=== PATIENT | female | born 1980 | race Caucasian/White ===

== ENCOUNTER 2018-09-01 11:57 | Inpatient (IN) | payer MEDICAID, OTHER ==
[~2018-09-01 11:57] MED LIST: ACETAMINOPHEN 1,000 MG/100 ML INJ IV ONE; CLINDAMYCIN PHOSPHATE 900 MG/6 ML VIAL ONE; DESFLURANE 240 ML LIQUID IH ONE; DEXAMETHASONE SOD PHOS 4 MG/ML VIAL ONE; FAMOTIDINE 20 MG/2 ML VIAL ONE; FENTANYL CITRATE/PF 250 MCG/5 ML INJ. ONE; LABETALOL HCL 20 MG/4 ML SYRINGE IV ONE; LACTATED RINGERS 1,000 ML IV.SOLN IV ONE; LIDOCAINE HCL 2% PF 100MG/5ML VIAL IJ ONE; MIDAZOLAM HCL 2 MG/2 ML VIAL ONE; ONDANSETRON HCL/PF 4 MG/ 2ML VIAL ONE; PROMETHAZINE HCL 25 MG/ML VIAL ONE; PROPOFOL 200 MG/20 ML VIAL IV ONE; ROCURONIUM BROMIDE 10 MG/ML 5ML VIAL ONE; SCOPOLAMINE HYDROBROMIDE 1.5MG/72HR PATCH TD ONE; SUCCINYLCHOLINE CHLORIDE 200 MG/10 ML VIAL ONE; SUGAMMADEX SODIUM 200 MG/2 ML VIAL IV ONE
[2018-09-01] MEDS ORDERED: ENOXAPARIN SODIUM 40 MG/0.4 ML DISP.SYRIN SQ ONE (12:29)
[2018-09-01] MEDS ORDERED: LACTATED RINGERS 1,000 ML IV ONE (12:29)
[2018-09-01] MEDS ORDERED: SCOPOLAMINE HYDROBROMIDE 1.5MG/72HR PATCH TD ONE (12:29)
[2018-09-01] MEDS ORDERED: FAMOTIDINE 20 MG/2 ML VIAL ONE (12:29)
[2018-09-01] MEDS ORDERED: HYDROmorphone HCL/PF 2 MG/ML VIAL ONE (16:31)
[2018-09-01] MEDS ORDERED: PROMETHAZINE HCL 25 MG/ML VIAL ONE (16:33)
[2018-09-01] MEDS ORDERED: LEVALBUTEROL HCL 1.25 MG/3 ML AMPUL.NEB NEB PRN (17:30)
[2018-09-01] MEDS ORDERED: HYDROcodone /APAP 10/325 1 EACH TABLET PO PRN (17:30)
[2018-09-01] MEDS ORDERED: ACETAMINOPHEN 1,000 MG/100 ML INJ IV PRN (17:30)
[2018-09-01] MEDS ORDERED: MORPHINE SULFATE 10 MG/ML VIAL IVP PRN (17:30)
[2018-09-01] MEDS ORDERED: KETOROLAC TROMETHAMINE 30 MG/1ML VIAL IVP PRN (17:30)
[2018-09-01] MEDS ORDERED: PROMETHAZINE HCL 25 MG in 0.9 % SODIUM CHLORIDE 50 ML IV PRN (17:30)
--- NOTE | 2018-09-01 17:44 | History and Physical Report ---
History of Present Illnes - History of Present Illness Reason for Visit: S/P Gastric Sleeve History of Present Illness: Patient is a 38-year-old white female who has tried multiple diets and exercise programs with no success. She has researched surgical weight loss by talking to friends and family who have had this procedure done. Patient and surgeon decided to proceed with gastric sleeve procedure. Procedure went well without complications- patient is awake and alert on admission and no acute distress (she is doing very well) patient will be admitted and monitored s/p surgical intervention. 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 denies: Inflam bowel disease Heme/Onc: denies: Anemia NOS, Iron deficiency anemia Hepatobiliary: Other (fatty liver disease) Psych: Depression Musculoskeletal: denies: Chronic low back pain Rheumatologic: denies: Fibromyalgia Infectious Disease: Herpes zoster. denies: HIV ENT: denies: Sinusitis Renal/: denies: Acute renal failure Endocrine: obesity. denies: Diabetes, Hypothyroidism Dermatology: denies: Eczema Grav: 4 Para: 3 Ab: 1 - Past Surgical History Past Surgical History: Cholecystectomy, Hysterectomy, Tubal Ligation - Past Family History Mother Family History: Cancer Sister 1 Family History: Cancer - Past Social History Smoke: No Alcohol: Rare Drugs: None Lives: With Family Domestic Violence: Negative - Health Maintenance Health Maintenance: Mammogram Influenza Vaccine: No, Patient Refused Pneumonia Vaccine: No Resuscitation Status: Resusciation Status Resuscitation Status Full Code - Unable to Obtain History Unable to Obtain: No Review of Systems - Review of Systems Constitutional: negative: Fever, Chills Eyes: negative: pain, vision change ENT: negative: Ear Pain, Nose Pain, Throat Pain Respiratory: negative: Cough, Shortness of Breath Cardiovascular: negative: Chest Pain Gastrointestinal: Nausea, Abdominal Pain (s/p gastric sleeve). negative: Vomiting Genitourinary: negative: Dysuria Musculoskeletal: negative: Shoulder Pain, Back Pain Skin: negative: Rash Neurological: negative: Incoordination, Confusion - Medications/Allergies Allergies/Adverse Reactions: Allergies Allergy/AdvReac Type Severity Reaction Status Date / Time amoxicillin Allergy Verified 09/01/18 17:26 latex Allergy Verified 09/01/18 17:26 Penicillins Allergy Verified 09/01/18 17:39 Exam - Exam General: Alert, Oriented to Person, Oriented to Place, Oriented to Time, Cooperative, No acute distress HEENT: Atraumatic, PERRLA, Mouth Mucous membr. moist/[place], Nose Mucous membr. moist/[place] Neck: Normal Range of Motion. No: Stridor Lungs: Clear to auscultation, Normal air movement, Speaks full Sentences. No: Wheezes, Rales Cardiovascular: Regular rate, Normal S1, Normal S2 Peripheral Edema: none Peripheral Pulses: 2+ Abdomen: Soft, Decreased Bowel Sounds. No: Distended, Rigid Integumentary: Normal, [place], Warm, Dry Extremities: No edema, Normal pulses, No tenderness/swelling Neurological: Normal gait, Normal speech, Strength Equal Bilat, Sensation intact Psych/Mental Status: Mental status NL, Mood NL, Appropriate Affect, Intact Judgment Assessment/Plan - Assessment/Plan (1) S/P gastric surgery Status: Acute Current Visit: Yes Assessment: LCTA, incision sites without redness/erythema, legs are without tenderness/pain, no vomiting Plan: Plan is to give IVFs until patient can tolerate oral, monitor incisions for infection, encourage frequent ambulation & SCDs while in bed to prevent DVTs along with Lovenox daily, will encourage incentive spirometry to prevent resp illness, and IV PPI (2) Morbid obesity due to excess calories Status: Acute Current Visit: Yes Plan: S/P gastric sleeve (3) GERD (gastroesophageal reflux disease) Status: Acute Current Visit: Yes Qualifiers: Esophagitis presence: without esophagitis Qualified Code(s): K21.9 - Gastro-esophageal reflux disease without esophagitis Assessment: Stable without medications Plan: Will start IV PPI (4) Hypertension Status: Acute Current Visit: Yes Qualifiers: Hypertension type: essential hypertension Qualified Code(s): I10 - Essential (primary) hypertension Assessment: Stable without medications Plan: Will monitor blood pressures closely (5) Depression Status: Acute Current Visit: Yes Qualifiers: Depression Type: unspecified Qualified Code(s): F32.9 - Major depressive disorder, single episode, unspecified Assessment: Stable Plan: Will monitor patient for depression (6) Migraines Status: Acute Current Visit: Yes Qualifiers: Migraine type: unspecified Status migrainosus presence: without status migrainosus Intractability: intractable Qualified Code(s): G43.919 - M igraine, unspecified, intractable, without status migrainosus Assessment: Stable with Tylenol Plan: Will monitor (7) Fatty liver disease, nonalcoholic Status: Acute Current Visit: Yes Assessment: Will monitor abdomen for distention, pain, N/V Plan: Monitoring of patient VTE Assessment - RISK FACTOR SCORE VTE RISK FACTOR SCORES: OBESITY, MAJOR SURGERY/ANESTHESIA TIME > 1 HOUR (Lovenox daily, frequent ambulation, SCDs while in bed)
[2018-09-01] MEDS: 0.9 % SODIUM CHLORIDE 1,000 ML IV SCH (17:55)
[2018-09-01 18:16] VITALS: BMI 46.6
[2018-09-01] MEDS ORDERED: MORPHINE SULFATE 5 MG/ML ML IJ PRN (19:46)
[2018-09-01] MEDS: ONDANSETRON HCL/PF 4 MG/ 2ML VIAL IVP PRN (23:30)
[2018-09-01] MEDS: CLINDAMYCIN PHOSPHATE/D5W 600 MG/50 ML PIGGYBACK IV SCH (23:45)
[2018-09-02] MEDS: 0.9 % SODIUM CHLORIDE 1,000 ML IV SCH ×5 (00:19→20:22)
[2018-09-02] MEDS: CLINDAMYCIN PHOSPHATE/D5W 600 MG/50 ML PIGGYBACK IV SCH (05:03)
[2018-09-02] MEDS ORDERED: PANTOPRAZOLE SODIUM INJ. 40 MG VIAL ONE (07:41)
[2018-09-02] MEDS ORDERED: 0.9 % SODIUM CHLORIDE 50 ML IV ONE (07:42)
[2018-09-02] MEDS: PANTOPRAZOLE SODIUM 40 MG in 0.9 % SODIUM CHLORIDE 50 ML IV SCH (08:45)
--- NOTE | 2018-09-02 08:49 | Inpatient Progress Note ---
Subjective - Required Recertification Statement I anticipate X number of days because-include discharge plan: 1 - Review of Systems Subjective: Patient doing ok. Still some mild spitting up when up moving. Only has had ice chips. Doesn't like broth. No passing gas yet. Burping. Objective - Exam Vitals and I&O: Vital Signs Temp 98.4 F 09/02/18 06:00 Pulse 94 H 09/02/18 06:00 Resp 18 09/02/18 06:00 BP 169/98 09/02/18 06:00 Pulse Ox 0 L 09/02/18 08:09 Intake & Output 09/01/18 09/01/18 09/02/18 11:59 23:59 11:59 Intake Total 975 1590 Output Total 1300 1000 Balance -325 590 Weight 135.171 kg Intake: IV 975 1500 Right Antecubital 975 1500 Oral 0 90 Output: Urine 1300 1000 Other: Voiding Method Toilet Toilet # Voids 1 # Bowel Movements 0 General: Alert, Oriented to Person, Oriented to Place, Oriented to Time, No acute distress Lungs: Clear to auscultation, Normal air movement, Speaks full Sentences Cardiovascular: Regular rate Abdomen: Normal bowel sounds, Soft, Other (Bandages C/D/I). No: No tenderness Assessment/Plan - Assessment/Plan (1) Hypertension Status: Acute Current Visit: Yes Qualifiers: Hypertension type: essential hypertension Qualified Code(s): I10 - Essential (primary) hypertension Plan: Patient on no meds preop. BP 160's. Watch. (2) S/P gastric surgery Status: Acute Current Visit: Yes Plan: Will have dietary talk to her about something she would eat. I think if we get more than ice chips on her stomach that may help. Encourage ambulation frequently.
[2018-09-02] MEDS ORDERED: ENOXAPARIN SODIUM 40 MG/0.4 ML DISP.SYRIN SQ SCH (11:00)
[2018-09-02] MEDS ORDERED: MORPHINE SULFATE 5 MG/ML ML IV PRN (12:00)
[2018-09-02] MEDS: ONDANSETRON HCL/PF 4 MG/ 2ML VIAL IVP PRN (20:22)
[2018-09-03] MEDS: 0.9 % SODIUM CHLORIDE 1,000 ML IV SCH (02:52)
[2018-09-03 07:34] VITALS: BP 155/78
[2018-09-03] MEDS: PANTOPRAZOLE SODIUM 40 MG in 0.9 % SODIUM CHLORIDE 50 ML IV SCH (07:49)
--- NOTE | 2018-09-03 08:23 | Discharge Summary ---
Discharge Summary - Discharge Sumary History of Present Illness: Patient is a 38-year-old white female who has tried multiple diets and exercise programs with no success. She has researched surgical weight loss by talking to friends and family who have had this procedure done. Patient and surgeon decided to proceed with gastric sleeve procedure. Procedure went well without complications- patient is awake and alert on admission and no acute distress (she is doing very well) patient will be admitted and monitored s/p surgical intervention. Condition at Discharge: Stable Home Medications: Ambulatory Orders Medication Instructions Recorded Acetaminophen [Tylenol Extra 500 mg PO DAILY 09/01/18 Strength] Acyclovir [Zovirax] 600 mg PO QID PRN 09/01/18 Docusate Sodium [Colace] 100 mg PO TID PRN 09/01/18 Phentermine HCl [Adipex-P] 37.5 mg PO DAILY 09/01/18 Ranitidine HCl [Zantac] 150 mg PO DAILY 09/01/18 Consultations this Visit: None Procedures this Visit: Other (sleeve gastrectomy) Allergies/Adverse Reactions: Allergies Allergy/AdvReac Type Severity Reaction Status Date / Time amoxicillin Allergy Verified 09/01/18 17:26 latex Allergy Verified 09/01/18 17:26 Penicillins Allergy Verified 09/01/18 17:39 Patient Problems: Current Active Problems Problem Status Onset Depression Acute Fatty liver disease, nonalcoholic Acute GERD (gastroesophageal reflux disease) Acute Hypertension Acute Migraines Acute Morbid obesity due to excess calories Acute S/P gastric surgery Acute Hospital Course: Patient did well post op. Ambulation, SCD, IS and lovenox were utilized. Patient tolerated gastric diet. Discharged home in good condition. BP was mildly elevated. No h/o HTN. Will monitor as an outpatient.
== END 2018-09-03 09:25 | disposition home or self-care (01) | DRG 621 ==
LOC: SOUTH 11:57 → UNDOADMIN 17:24 → SOUTH 17:24 → UNDODISIN 09-03 09:25
PROVIDERS: ADMIT Nurse Practitioner Family; ATTEND Nurse Practitioner Family
DX: E66.01 Morbid (severe) obesity due to excess calories (principal); Z68.42 Body mass index [BMI] 45.0-49.9, adult; I11.0 Hypertensive heart disease with heart failure; K21.9 Gastro-esophageal reflux disease without esophagitis; F32.9 Major depressive disorder, single episode, unspecified; G43.919 Migraine, unspecified, intractable, without status migrainosus; K76.0 Fatty (change of) liver, not elsewhere classified
CPT/HCPCS: 43235; 99231; 99232; 99238; J0330; J1100; J1170; J1650; J2001; J2250; J2405; J2550; J2704; 43775; A9270-GY; J7030; J7120; S1016